=== PATIENT | male | born 1975 | race Caucasian/White ===

== ENCOUNTER → 2017-03-19 | Outpatient (REF) ==
[~2017-03-19] MED LIST: ATORVASTATIN; PREVACID30 MG PO; RESPERDAL; SEROQUEL; SINGULAIR
[2017-03-19 20:13] LABS: PSA-TOTAL 0.82 ng/mL (0-4); THYROID STIMULATING HORMONE 2.18 uIU/mL (0.465-4.680)
== END ==
LOC: ZLAB.WCH 18:03
PROVIDERS: Internal Medicine
DX: Z01.89 Encounter for other specified special examinations (principal)
CPT/HCPCS: G0103

== ENCOUNTER → 2018-05-11 | Outpatient (REF) | LOC: ZLAB.WCH 08:39 | DX: Z01.89 Encounter for other specified special examinations (principal) | CPT/HCPCS: G0103 ==

== ENCOUNTER → 2018-06-08 | Emergency (ER) | payer MEDICARE, MEDICAID ==
[~2018-06-08] VITALS: Ht 182.9 cm; Wt 94.5 kg
[~2018-06-08] MED LIST changes: +MULTI VITAMINS1 TAB PO; +RISPERDAL2 MG PO; +SEROQUEL 200MG200 MG PO; +VITAMIN B COMPL1 SGL PO; +WELLBUTRIN SR200 MG PO
[2018-06-08 21:55] VITALS: BP 152/107; PULSE 80; TEMP 97.8
[2018-06-08 22:10] VITALS: BP 146/111; PULSE 76; TEMP 97.8
[2018-06-08 22:25] VITALS: BP 142/95; PULSE 68; TEMP 97.8
[2018-06-08 22:40] VITALS: BP 129/91; PULSE 64; TEMP 97.8
[2018-06-08 23:10] VITALS: BP 109/96; PULSE 60; TEMP 97.7
[2018-06-08 23:40] VITALS: BP 134/108; PULSE 69; TEMP 97.7
== END ==
LOC: COL.ER 18:57
DX: T17.590A Other foreign object in bronchus causing asphyxiation, initial encounter (principal); F17.210 Nicotine dependence, cigarettes, uncomplicated; F31.9 Bipolar disorder, unspecified; F90.9 Attention-deficit hyperactivity disorder, unspecified type

== ENCOUNTER 2018-06-22 10:41 | Emergency (ER) | payer MEDICARE, MEDICAID ==
[~2018-06-22] VITALS: Ht 177.8 cm; Wt 91.7 kg
[2018-06-22 10:48] VITALS: BP 142/95; TEMP 97.8
[2018-06-22 11:48] VITALS: PULSE 74
== END 2018-06-22 11:51 | disposition home or self-care (01) ==
LOC: COL.ER 10:41
DX: S50.11XA Contusion of right forearm, initial encounter (principal); S90.512A Abrasion, left ankle, initial encounter; F90.9 Attention-deficit hyperactivity disorder, unspecified type; F31.9 Bipolar disorder, unspecified; F17.210 Nicotine dependence, cigarettes, uncomplicated; V19.9XXA Pedal cyclist (driver) (passenger) injured in unspecified traffic accident, initial encounter; Y92.410 Unspecified street and highway as the place of occurrence of the external cause

== ENCOUNTER 2019-04-24 11:00 | Emergency (ER) | payer SELFPAY ==
[~2019-04-24] VITALS: Ht 182.9 cm; Wt 88.6 kg
[2019-04-24 11:26] VITALS: TEMP 98.7
[2019-04-24] MEDS ORDERED: RISPERDAL 1M1 MG/TAB PO (14:21)
[2019-04-24] MEDS ORDERED: WELLBUTRIN SR200 MG PO (14:21)
[2019-04-24] MEDS ORDERED: RISPERDAL2 MG PO (14:21)
[2019-04-24] MEDS ORDERED: SEROQUEL 200MG200 MG PO (14:21)
[2019-04-24 15:13] VITALS: BP 110/73; PULSE 65
== END 2019-04-24 15:15 | disposition home or self-care (01) ==
LOC: COL.ER 11:00
DX: S61.412A Laceration without foreign body of left hand, initial encounter (principal); W26.8XXA Contact with other sharp object(s), not elsewhere classified, initial encounter

== ENCOUNTER 2019-05-04 10:50 | Emergency (ER) | payer SELFPAY ==
[~2019-05-04 10:50] MED LIST changes: +RISPERDAL 1M1 MG/TAB PO
[2019-05-04 10:57] VITALS: BP 132/69; PULSE 78; TEMP 98.1
== END 2019-05-04 11:04 | disposition home or self-care (01) ==
LOC: COL.ER 10:50
DX: Z48.02 Encounter for removal of sutures (principal)